=== PATIENT | male | born 1955 | race Caucasian/White ===

== ENCOUNTER 2023-07-24 14:40 | Emergency (ER) | payer MEDICARE, SELFPAY ==
[2023-07-24] VITALS (9 sets, daily range): BP systolic 134–175; BP diastolic 80–89; PULSE 53–62; RESP 18; TEMP 36.6; O2SAT 97–99; BMI 24.3
--- NOTE | 2023-07-24 15:35 | DI.RAD.S_ITS ---
PROCEDURE: XR FOREARM RT 2V INDICATIONS: water into arm w/ patternmaker pressure cast TECHNIQUE: 2 views of the forearm were acquired. COMPARISON: None. FINDINGS: Bones: No fractures or dislocations. No suspicious bony lesions. Soft tissues: Soft tissue air in the anterior soft tissues noted tracking along the fascial planes IMPRESSION: No evidence of osseous injury. Soft tissue air in the anterior fascial planes consistent with mechanism of injury Approved by: Marquis Lai M.D. on 07/24/2023 at 16:08
--- NOTE | 2023-07-24 15:40 | ED_ITS ---
HPI - Extremity Injury (Upper) General Chief Complaint: Extremity Injury, Upper Stated Complaint: Machine Turner Injury R Arm Time Seen by Provider: 07/24/23 15:35 Source: patient Mode of arrival: Ambulatory Limitations: no limitations History of Present Illness HPI narrative: This is a 68-year-old male with no reported medical issues who presents with complaint of a steward dishwasher injury to his forearm. Patient was going to pressure washes deck. It is with water, not pain or oil. Patient went to turn it on and his forearm was by the nasal and he accidentally shot himself in the forearm with some tunneling up a few inches. He states painful but not exquisitely. He states it stops a couple inches from the initial injury. He states there was a cut to the skin it initially bled. EMS placed Steri-Strips and a bandage and it has since stopped. Patient denies any numbness tingling or weakness. He has not had any additional swelling of his arm. He denies any other symptoms. He can raise his arm through full range of motion but feels more comfortable to have an elevated. Patient is otherwise healthy no daily prescription medications, no prior surgeries. No known drug allergies. No tobacco, alcohol or recreational drugs. His tetanus is not up-to-date. He is accompanied by his . He does live on [facility]. Related Data Previous Rx's Medication Instructions Recorded cephalexin 500 mg capsule 500 mg PO Q6H 10 days #40 caps 07/24/23 Allergies Allergy/AdvReac Type Severity Reaction Status Date / Time No Known Drug Allergies Allergy Verified 03/05/22 10:57 Review of Systems Review of Systems ROS Unobtainable: All systems reviewed & are unremarkable except as noted in HPI and below Patient History Social History Smoking Status: Former smoker Smoking Status: Former smoker Substance Use Type: marijuana Exam Narrative Exam Narrative: GENERAL: Alert and oriented x three, male in mild distress. HEENT: Head normocephalic, atraumatic, EOMI, pupils reactive, face symmetric, moist mucous membranes NECK: Supple, full range of motion CARDIOVASCULAR: Regular rate and rhythm without murmurs, rubs or gallops. RESPIRATORY: Breath sounds equal bilaterally, no wheezes rales or rhonchi. ABDOMEN: Soft, nontender. Normoactive bowel sounds all 4 quadrants. No guarding or rebound, rigidity, no mass : No CVA tenderness EXTREMITIES: Normal range of motion, no clubbing or edema. Neurovascularly intact. Patient asked to be laceration 2.25cm over the volar side of the forearm it is gapped, into the subcutaneous, no tendon involvement appreciated. No active bleeding currently. Patient does not have any significant swelling of the arm no erythema or skin changes. Able to compartments are soft. Patient has 2+ radial pulse, cap refill less than 2 seconds in the with full range of motion of fingers, wrist elbow and shoulder. NEUROLOGICAL: Cranial nerves II through XII grossly intact. Moving all extremit ies SKIN: Warm, dry, no petechiae, no rashes or lesions otherwise normal. Initial Vital Signs Initial Vital Signs: Vital Signs Temperature 98 F 07/24/23 14:50 Pulse Rate 57 L 07/24/23 14:50 Respiratory Rate 18 07/24/23 14:50 Blood Pressure 175/89 H 07/24/23 14:50 Pulse Oximetry 99 07/24/23 14:50 Oxygen Delivery Method Room Air 07/24/23 14:50 Procedures Laceration Repair Laceration 1: Site: upper extremity Side (If applicable): right Size (cm): 2.25 Description: linear and clean Depth: simple, single layer Local Anesthetic: lidocaine 2% Amount of anesthesia used (mL): 4 Pre-repair: wound explored, irrigated extensively and deep structures intact Skin layer closed with: nylon Skin layer suture size: 4-0 Number of sutures: 4 Technique: simple, interrupted Course Orders Ordered: ED Orders 07/24/23 15:35 XR forearm RT 2V Stat Discontinued Medications Cefazolin Sodium (Cephalexin 250 Mg Cap Prepack) 1 bottle MISC DIRECTED ONE Stop: 07/24/23 18:38 Last Admin: 07/24/23 18:43 Dose: 2 cap Documented By: DUSTY Diphtheria/Tetanus/Acell Pertussis (Tet,Diph,Pertuss(Acell),Vac/Pf 0.5 Ml Syringe) 0.5 ml IM .ONCE ONE Stop: 07/24/23 15:42 Last Admin: 07/24/23 16:02 Dose: 0.5 ml Documented By: DUSTY Cefazolin Sodium/Dextrose (Ancef) 100 mls @ 200 mls/hr IV NOW ONE Stop: 07/24/23 17:08 Last Infusion: 07/24/23 18:10 Dose: Infused Documented By: Admin: 07/24/23 17:21 Dose: 200 mls/hr Documented By: DUSTY Lidocaine HCl (Lidocaine 2% Inj Sdv 5ml) 5 ml INJ NOW ONE Stop: 07/24/23 16:39 Last Admin: 07/24/23 18:10 Dose: 5 ml Documented By: DUSTY Vital Signs Vital signs: Vital Signs - 8 hr 07/24/23 14:50 07/24/23 15:06 07/24/23 15:07 Temperature 98 F Pulse Rate 57 L 60 Respiratory Rate 18 Blood Pressure 175/89 H 155/88 H Pulse Oximetry 99 97 Oxygen Delivery Method Room Air 07/24/23 15:07 07/24/23 15:30 07/24/23 15:31 Temperature Pulse Rate 53 L 61 58 L Respiratory Rate Blood Pressure Pulse Oximetry 98 99 99 Oxygen Delivery Method 07/24/23 15:31 07/24/23 16:00 07/24/23 16:00 Temperature Pulse Rate 60 Respiratory Rate Blood Pressure 136/83 134/85 Pulse Oximetry 99 Oxygen Delivery Method 07/24/23 17:11 07/24/23 17:30 07/24/23 18:00 Temperature Pulse Rate 62 61 61 Respiratory Rate Blood Pressure 134/80 Pulse Oximetry 99 99 98 Oxygen Delivery Method MDM - Extremity Injury (Upper) Imaging Data Extremity x-ray #1: Radiologist's Impression: Celso Gavin??68??M??1955 ? Allergy/Adv: No Known Drug Allergies Close Forearm X-Ray (Signed) [facility] - 07/24/23 [place] [address] XRay Report Signed Patient: Celso Gavin MR#: [id number] : 1955 Acct:[id number] Age/Sex: 68 / M Date of Service: 07/24/23 Loc: ED Accession Number: [id number] Procedure: XR forearm RT 2V Ordering Provider: Miri Ibarra D.O. PROCEDURE: XR FOREARM RT 2V INDICATIONS: water into arm w/ steward dishwasher TECHNIQUE: 2 views of the forearm were acquired. COMPARISON: None. FINDINGS: Bones: No fractures or dislocations. No suspicious bony lesions. Soft tissues: Soft tissue air in the anterior soft tissues noted tracking along the fascial planes IMPRESSION: No evidence of osseous injury. Soft tissue air in the anterior fascial planes consistent with mechanism of injury Approved by: Marquis Lai M.D. on 07/24/2023 at 16:08 [facility] Narrative Medical decision making narrative: 68-year-old male with a steward dishwasher injection to the right forearm, was water-based. Patient has soft compartments with normal neurovascular exam. X-ray shows soft tissue in the anterior soft tissues tracking along the fascial planes. No evidence of obvious osseous injury. No other foreign bodies noted. Patient's tetanus was updated and was given a dose of IV antibiotics, spoke with Orthopedic surgery, Dr. Kim patient can follow along with them. He is okay with the wound being closed with sutures. Oral antibiotics such as Keflex. Discussed patient does appear neurovascularly intact was a steward dishwasher injection with water injury. Discussed with patient strict return precautions, with antibiotics. Very low threshold to return as these have high-risk for infection. Discharge Plan Departure Patient Disposition: Home Clinical Impression: Laceration of forearm Instructions: DI for Laceration Repair Activity Restrictions/Additional Instructions: You had a steward dishwasher injury today to your forearm resulting in a laceration, there is air tracking underneath the forearm consistent with this injury. These are very high-risk for infection and significantly more damage than initially seen please keep a close eye on this. Follow up with Orthopedic surgery, call Wednesday morning to set up a follow up appointment. Follow up in 7-10 days for ritual your sutures, this can be with Orthopedic surgery or your primary care. You may take Tylenol and/or ibuprofen as needed for pain. Prescription was sent to [facility] on [facility], take antibiotics as prescribed on the bottle. Wound Care: Keep wound(s) clean and dry. Wash daily with soap and water only. Do not use over the counter products (alcohol or peroxide)on the wounds unless instructed by a physician. If wound condition worsens (increased/expanding redness, developing fluid blisters, or worsening pain), either contact your doctor for an urgent re- assessment , or return to the Emergency Department. Return if fever greater than 100.4 Fahrenheit, increased swelling, increasing pain or worsening symptoms such as increased discharge or spreading redness, rapidly worsening pain new numbness, tingling or weakness, increasing swelling of the arm, difficulty with movement of the arm hand or fingers, if the arm feels hard and or other new or concerning changes. Prescriptions: New cephalexin 500 mg capsule 500 mg PO Q6H 10 Days Qty: 40 0RF Referrals: Hoang Kim MD [Physician] - Serjio Alvarez MD [Primary Care Provider] - Stand Alone Forms: Patient Portal/API
[2023-07-24] MEDS: TET,DIPH,PERTUSS(ACELL),VAC/PF 0.5 ML SYRINGE IM (16:02)
[2023-07-24] MEDS: CEFAZOLIN 2 GM/100 ML PREMIX 100 ML IV (17:21)
[2023-07-24] MEDS: LIDOCAINE 2% INJ SDV 5ML 5 ML INJ (18:10)
[2023-07-24] MEDS: cephALEXin 250 MG CAP PREPACK 1 BOTTLE MISC (18:43)
== END 2023-07-24 18:48 | disposition home or self-care (01) ==
PROVIDERS: Emergency Provider Emergency Medicine; PCP Family Medicine
DX: S51.811A Laceration without foreign body of right forearm, initial encounter (principal); X58.XXXA Exposure to other specified factors, initial encounter; Z23 Encounter for immunization
CPT/HCPCS: 12001; 36415; 73090; 90471; 96365; 99284; 90715; J0690